=== PATIENT | female | born 1980 | race Caucasian/White ===

== ENCOUNTER 2020-09-05 19:57 | Emergency (ER) | payer MEDICAID ==
[~2020-09-05] VITALS: Ht 157.5 cm; Wt 79.4 kg
[2020-09-05] MEDS ORDERED: PANTOPRAZOLE 40 MG/10 ML VIAL INJ IV STA (20:07)
[2020-09-05 20:15] LABS: Basophils # (auto) 0 10 ^3/uL (0-0.2); Basophils % (auto) 0.3 % (0.0-2.0); Eosinophils # (auto) 0 10 ^3/uL (0-0.8); Hematocrit 44.6 % (36.0-46.0); Hemoglobin 15.6 g/dL (12.2-16.2); Lymphocytes # (auto) 2.2 10 ^3/uL (0.4-5.4); Lymphocytes % (auto) 15.5 % (10.0-50.0); Mean Corpuscular Hemoglobin 29.7 pg (28.0-32.0); Mean Corpuscular Hgb Conc. 34.9 g/dL (32.0-36.0); Mean Corpuscular Volume 85.1 fL (80.0-100.0); Monocytes # (auto) 0.8 10 ^3/uL (0-1.3); Monocytes % (auto) 5.6 % (0.0-12.0); Neutrophils % (auto) 78.6 % (37.0-80.0); Nucleated Red Blood Cells % 0.1 %; Platelet Count (auto) 376 10^3/uL (140-450); Red Blood Cells 5.24 10^6/uL (4.0-5.20); Red Cell Distribution Width 13.4 % (11.8-14.3)
[2020-09-05] MEDS ORDERED: MORPHINE SULFATE 4 MG/ML SYR/VIAL IV ONE (20:15)
[2020-09-05] MEDS ORDERED: PROCHLORPERAZINE EDISYLATE 5 MG/ML 2ML VIAL IV ONE (20:15)
[2020-09-05] MEDS ORDERED: SODIUM CHLORIDE 0.9% 1,000 ML IVB ONE (20:15)
[2020-09-05 20:50] LABS: Albumin 4.3 g/dL (3.4-5.0); Calcium 10.3 mg/dL (8.5-10.1); Potassium 3.8 mmol/L (3.5-5.1)
[2020-09-05 20:54] LABS: BUN/Creatinine Ratio 8.5; Bilirubin, Total 0.6 mg/dL (0.2-1.0); Total Protein 8.3 g/dL (6.4-8.2)
[2020-09-05 22:00] VITALS: BP 122/69
== END 2020-09-05 22:32 | disposition home or self-care (01) ==
LOC: EDBD 19:57 → ER 20:08
DX: K29.00 Acute gastritis without bleeding (principal); D72.829 Elevated white blood cell count, unspecified; F17.210 Nicotine dependence, cigarettes, uncomplicated; F12.10 Cannabis abuse, uncomplicated; Z90.710 Acquired absence of both cervix and uterus
CPT/HCPCS: 36415; 76705; 80053; 82150; 83690; 85025; 96361; 96374; 96375; 99284; C9113; J0780; J2270; J7030